=== PATIENT | female | born 1980 | race Caucasian/White ===

== ENCOUNTER 2024-11-07 11:18 | Emergency (ER) | payer BC ==
--- OUTSIDE RECORDS SUMMARY | 2024-11-07 11:21 | XMS REPORT | Clinical Summary ---
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 Name Role Phone Neda Wyatt MD Primary Care Provider + [phone] Cornelius Wilkinson MD Unavailable [phone] Cornelius Wilkinson MD Unavailable [phone] Allergies No known active allergies Medications No known medications Active Problems Problem Noted Date Diagnosed Date Mild cervical dysplasia 11/10/2015 Personal history of tobacco use 11/10/2015 Overview (04/08/2019): 04/08 Regulatory Import Medical History Medical History Date Comments HPV - Human papillomavirus test positive 2015 Anemia Psoriasis Urinary incontinence sneezing, c oughing Migraine Family History Medical History Relation Name Comments -Gastrointestinal (Esophagus , Liver, Bile Duct, Stomach, Pancreas, Colon, Rectum, Anus Father c olon -Breast cancer Maternal Aunt -Melanoma Maternal Grandfather -Gastrointestinal (Esophagus , Liver, Bile Duct, Stomach, Pancreas, Colon, Rectum, Anus Maternal Uncle t hroat? -Breast cancer Other MGGM Relation Name Status Comments Father Alive Maternal Aunt Alive Maternal Grandfather Maternal Uncle Alive Other MGGM Alive Social History Tobacco Use Types Packs/Day Years Used Date Smoking Tobacco: Former Cigarettes 1 14 0 11/10/1999 - 11/09/2013 Smokeless Tobacco: Never Alcohol Use Standard Drinks/Week Comments No 0 (1 standard drink = 0.6 oz pur e alcohol) Comments No Sex and Gender Information Value Date Recorded Sex Assigned at Not on file Legal Sex Female 2:16 PM CDT Gender Identity Not on file Sexual Orientation Not on file Occupation Industry Job Start Date Job End Date Not on file Not on file Not on file Not on file Obstetrics History Para Term AB IAB SAB Ectopic Multiple Livin g Live Births 2 2 2 Date Outcome GA Total Labor Labor/2nd/3rd Weight Sex Type Anes PTL Deysi A1 A5 Name Clin Para Para Plan of Treatment Health Maintenance Due Date Last Done Comments COVID-19 Vaccine (2023-2 5 season) 2024 Influenza Vaccine (Season Ended) 2025 Pneumococcal Vaccine Aged Out No long er eligible based on patient's age to complete this topic [facility] AETNA HMO Care Teams 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 PCP - General Gynecologic Medical Oncology 10/27/15 Cornelius Wilkinson MD [address] [place] [address] [place] [address] [email or web address] PCP - External Referring 10/27/15 Cornelius Wilkinson MD [address] [place] [address] [place] [address] [email or web address] PCP - External Follow Up A 10/27/15
--- NOTE | 2024-11-07 12:07 | RAD REPORT ---
EXAMINATION: Ribs Left VIEWS: Two views CLINICAL INDICATION: Female, 44 years old. PAIN COMPARISON: No prior exam. IMPRESSION: No displaced left-sided rib fracture appreciated. No pneumothorax. Visualized lungs are clear. Benign calcified left midlung nodule.
[2024-11-07] MEDS ORDERED: IBUPROFEN 400 MG TAB ONE (12:24)
[2024-11-07] MEDS ORDERED: IBUPROFEN 200 MG TAB PO ONE (12:24)
--- NOTE | 2024-11-07 12:50 | ER ---
Nurse's Notes [facility] Name: Nithya Estrada Age: 44 yrs Sex: Female : 1980 Arrival Date: 11/07/2024 Time: 11:18 Bed X-Ray Private MD: Diagnosis: Chest wall pain Presentation: 11/07 11:29 Chief complaint: Patient states: Left rib pain since 11/01/24. Coronavirus screen: At jl this time, the client does not indicate any symptoms associated with coronavirus-19. Ebola Screen: No symptoms or risks identified at this time. Initial Sepsis Screen: Does the patient meet any 2 criteria? No. Patient's initial sepsis screen is negative. Does the patient have a suspected source of infection? No. Patient's initial sepsis screen is negative. Risk Assessment: Do you want to hurt yourself or someone else? Patient reports no desire to harm self or others. Onset of symptoms was November 01, 2024. 11:29 Method Of Arrival: Ambulatory [facility] 11:29 Acuity: TAE 4 jl7 Triage Assessment: 11:30 General: Appears in no apparent distress. uncomfortable, Behavior is calm, cooperative, jl7 appropriate for age. Pain: Complains of pain in left rib cage Pain currently is 4 out of 10 on a pain scale. at worst was 8 out of 10 on a pain scale. 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 - Infectious Disease History:: Denies. - Social history:: Smoking status: Patient reports the use of cigarette tobacco products, smokes one-half pack cigarettes per day. Screenin:28 [facility] ED Fall Risk Assessment (Adult) History of falling in the last 3 months, dd2 including since admission No falls in past 3 months (0 pts) Confusion or Disorientation No (0 pts) Intoxicated or Sedated No (0 pts) Impaired Gait No (0 pts) Mobility Assist Device Used No (0 pt) Altered Elimination No (0 pt) Score/Fall Risk Level 0 - 2 = Low Risk Oriented to surroundings, Maintained a safe environment, Educated pt \T\ family on fall prevention, incl call for assistance when getting out of bed, Assessed \T\ reinforced patient's understanding of fall precautions, Hourly rounding (assess needs \T\ fall precautionary measures) done. Abuse screen: Denies threats or abuse. Denies injuries from another. Nutritional screening: No deficits noted. Tuberculosis screening: No symptoms or risk factors identified. Assessment: 12:28 Reassessment: REPORT RECEIVED FROM LILLY VAN. ASSUMING PT CARE AT THIS TIME. General: dd2 Appears in no apparent distress. uncomfortable, Behavior is calm, cooperative, appropriate for age. Pain: Complains of pain in LT RIBS Pain does not radiate. Pain currently is 4 out of 10 on a pain scale. at worst was 10 out of 10 on a pain scale. Neuro: No deficits noted. [place] Agitation-Sedation Scale (RASS): 0 - Alert and Calm Level of Consciousness is awake, alert, obeys commands, Oriented to person, place, time, situation, Appropriate for age. Cardiovascular: No deficits noted. Patient's skin is warm and dry. Respiratory: No deficits noted. Airway is patent Respiratory effort is even, unlabored, Respiratory pattern is regular, symmetrical. GI: No deficits noted. Abdomen is flat, non-distended, Abd is soft and non tender X 4 quads. : No deficits noted. No signs and/or symptoms were reported regarding the genitourinary system. EENT: No deficits noted. No signs and/or symptoms were reported regarding the EENT system. Derm: No deficits noted. No signs and/or symptoms reported regarding the dermatologic system. Skin is healthy with good turgor, Skin is dry, Skin is normal, Skin temperature is warm. Musculoskeletal: Circulation, motion, and sensation intact. Range of motion: intact in all extremities, Tenderness present in left lateral anterior chest Reports pain in LT RIBS Pain is 4 out of 10 on a pain scale. Vital Signs: 11:29 BP 133 / 77; Pulse 69; Resp 17; Pulse Ox 99% ; Weight 58.97 kg; Height 5 ft. 4 in. ; jl7 Pain 4/10; 12:55 BP 127 / 74; Pulse 73; Resp 16; Temp 98.2; Pulse Ox 99% on R/A; dd2 11:29 Body Mass Index 22.31 (58.97 kg, 162.56 cm) jl7 11:29 Pain Scale: Adult jl7 Lexy Coma Score: 12:28 Eye Response: spontaneous(4). Motor Response: obeys commands(6). Verbal Response: dd2 oriented(5). Total: 15. ED Course: 11:22 Patient arrived in ED. al6 11:28 Janak Perez DO is Attending Physician. ms3 11:30 Triage completed. jl7 11:30 Arm band placed on right wrist. jl7 11:59 Ribs Left XRAY In Process Unspecified. EDMS 12:27 GLORIA ZACARIAS, RN is Primary Nurse. dd2 12:28 Patient has correct armband on for positive identification. Bed in low position. Call dd2 light in reach. Client placed on continuous cardiac and pulse oximetry monitoring. NIBP monitoring applied. Door closed. Noise minimized. Pillow given. PO fluids given. Verbal reassurance given. 12:28 No provider procedures requiring assistance completed. Patient did not have IV access dd2 during this emergency room visit. Patient maintains SpO2 saturation greater than 95% on room air. 12:49 Arthur Burger DO is Referral Physician. ms3 12:55 Provided Education on: d/c instructions. dd2 Administered Medications: 12:27 Drug: Ibuprofen PO 600 mg PO once Route: PO; dd2 12:56 Follow up: Response: No adverse reaction dd2 Medication: 12:28 VIS not applicable for this client. dd2 Outcome: 12:50 Discharge ordered by MD. ms3 12:55 Discharged to home ambulatory, dd2 12:55 Condition: stable 12:55 Discharge instructions given to patient, Instructed on discharge instructions, follow up and referral plans. Demonstrated understanding of instructions, follow-up care, 12:57 Patient left the ED. dd2 Signatures: Dispatcher [employer] EDMS Gabriel Cristina RN RN jl7 Janak Perez DO DO ms3 GLORIA ZACARIAS RN RN dd2 Crystal Rae al6
--- NOTE | 2024-11-07 12:50 | EDPHYS ---
Physician Documentation [facility] Name: Nithya Estrada Age: 44 yrs Sex: Female : 1980 Arrival Date: 11/07/2024 Time: 11:18 Bed X-Ray Private MD: ED Physician Janak Perez HPI: 11/07 13:26 This 44 yrs old Female presents to ER via Ambulatory with complaints of Pain - side. ms3 13:26 44-year-old female past medical history of anxiety presents to the emergency department ms3 for left-sided rib pain after her son fell on her chest on Sunday. Patient states her pain is a 4/10 and worse with movement or deep breaths.. 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 - Infectious Disease History:: Denies. - Social history:: Smoking status: Patient reports the use of cigarette tobacco products, smokes one-half pack cigarettes per day. ROS: 13:26 Constitutional: Negative for fever, and chills. Respiratory: Negative for shortness of ms3 breath, cough, wheezing, and pleuritic chest pain, Abdomen/GI: Negative for abdominal pain, nausea, vomiting, diarrhea, and constipation, MS/Extremity: Negative for injury and deformity, 13:26 Cardiovascular: Positive for chest pain, with movement, Exam: 13:26 Constitutional: This is a well developed, well nourished patient who is awake, alert, ms3 and in no acute distress. Cardiovascular: Regular rate and rhythm with a normal S1 and S2. No gallops, murmurs, or rubs. Normal PMI, no JVD. No pulse deficits. Respiratory: Lungs have equal breath sounds bilaterally, clear to auscultation and percussion. No rales, rhonchi or wheezes noted. No increased work of breathing, no retractions or nasal flaring. Abdomen/GI: Soft, non-tender, with normal bowel sounds. No distension or tympany. No guarding or rebound. No evidence of tenderness throughout. 13:26 Chest/axilla: Inspection: normal, Palpation: tenderness, that is moderate, of the left lateral anterior chest, Vital Signs: 11:29 BP 133 / 77; Pulse 69; Resp 17; Pulse Ox 99% ; Weight 58.97 kg; Height 5 ft. 4 in. ; jl7 Pain 4/10; 12:55 BP 127 / 74; Pulse 73; Resp 16; Temp 98.2; Pulse Ox 99% on R/A; dd2 11:29 Body Mass Index 22.31 (58.97 kg, 162.56 cm) 7 11:29 Pain Scale: Adult jl7 Lexy Coma Score: 12:28 Eye Response: spontaneous(4). Motor Response: obeys commands(6). Verbal Response: dd2 oriented(5). Total: 15. MDM: 11:36 Medical Screening Exam initiated ms3 13:26 Differential diagnosis: chest wall pain, pneumothorax, Rib fracture. Data reviewed: ms3 vital signs, nurses notes, radiologic studies, and as a result, I will discharge patient. I considered the following discharge prescriptions or medication management in the emergency department Medications were administered in the Emergency Department. See MAR. Independent interpretation of the following test(s) in the Emergency Department X-Ray: My interpretation is Left rib x-ray series images reviewed by me do not reveal fracture or pneumothorax. Counseling: I had a detailed discussion with the patient and/or guardian regarding the historical points, exam findings, and any diagnostic results supporting the discharge/admit diagnosis, radiology results, the need for outpatient follow up, to return to the emergency department if symptoms worsen or persist or if there are any questions or concerns that arise at home. ED course: Discussed x-ray findings with patient. Patient to follow-up with primary care physician in 2 to 3 days. Patient understands and agrees with plan peer all questions were answered. Return precautions discussed include worsening symptoms, or any other concerns.. 11/07 11:37 Order name: Ribs Left XRAY; Complete Time: 12:09 ms3 Administered Medications: 12:27 Drug: Ibuprofen PO 600 mg PO once Route: PO; dd2 12:56 Follow up: Response: No adverse reaction dd2 Disposition Summary: 11/07/24 12:50 Discharge Ordered Notes: Location: Home ms3 Condition: Stable ms3 Diagnosis - Chest wall pain ms3 Followup: ms3 - With: Arthur Burger, DO - When: 2 - 3 days - Reason: Recheck today's complaints Discharge Instructions: - Discharge Summary Sheet ms3 - Chest Wall Pain, [id number] ms3 Forms: - Medication Reconciliation Form ms3 - Antibiotic Education ms3 - Prescription Opioid Use ms3 - Patient Portal Instructions ms3 - Leadership Thank You Letter ms3 Signatures: Dispatcher [employer] Gabriel Osborne RN RN jl7 Janak Perez DO DO ms3 GLORIA ZACARIAS RN RN dd2
[2024-11-07 13:48] VITALS: O2SAT 99
[2024-11-07 13:49] VITALS: BP 127/74; TEMP 98.2
== END 2024-11-07 12:57 | disposition home or self-care (01) ==
LOC: ER 11:18
DX: R07.89 Other chest pain (principal); F17.210 Nicotine dependence, cigarettes, uncomplicated
CPT/HCPCS: 99283